=== PATIENT | male | born 1950 | race Caucasian/White ===

== ENCOUNTER → 2019-03-20 | Emergency (ER) | payer OTHER ==
[~2019-03-20] VITALS: Ht 182.9 cm; Wt 74.4 kg
[~2019-03-20] MED LIST: ADULT ASPIRIN81 MG; APRESOLINE 10MG10 MG; CLONAZEPAM0.5 MG PO; LANTUS SOL100 UNIT/1; LIPITOR40 MG; METFORMIN HCL500 MG; PLAVIX75 MG; PROCARDIA XL90 MG; VASOTEC10 MG; ZOLOFT50 MG
== END | disposition designated cancer center or children's hospital (05) ==
LOC: ER 17:49
DX: I62.00 Nontraumatic subdural hemorrhage, unspecified (principal)